=== PATIENT | male | born 1975 | race Two or more races ===

== ENCOUNTER 2021-07-10 13:57 | Emergency (ER) | payer OTHER | END 2021-07-10 14:12 | disposition home or self-care (01) | LOC: JVIRT 13:57 | DX: M79.10 Myalgia, unspecified site (principal); R05.1 Acute cough; R19.7 Diarrhea, unspecified | CPT/HCPCS: C9803; Q3014-GT; U0003; U0005 ==

== ENCOUNTER 2022-01-24 10:25 | Emergency (ER) | payer OTHER ==
[2022-01-24 10:56] VITALS: BP 136/92; PULSE 93; TEMP 98.3; BMI 38.2
[2022-01-24] MEDS ORDERED: KETOROLAC TROMETHAMINE 30 MG/1 ML VIAL IM ONE (12:11)
[2022-01-24] MEDS ORDERED: LIDOCAINE 5% TOPICAL PATCH TP ONE (12:11)
[2022-01-24] MEDS ORDERED: KETOROLAC TROMETHAMINE 30 MG/1 ML VIAL ONE (12:23)
[2022-01-24] MEDS ORDERED: LIDOCAINE 5% TOPICAL PATCH ONE (12:23)
[2022-01-24] MEDS ORDERED: LIDOCAINE PATCH REMOVAL MC SCH (22:00)
== END 2022-01-24 12:49 | disposition home or self-care (01) ==
LOC: JER 10:25 → JERFT 10:25
PROC: 3E0233Z Introduction of Anti-inflammatory into Muscle, Percutaneous Approach (ICD-10-PCS; principal; 2022-01-24)
DX: M54.42 Lumbago with sciatica, left side (principal)
CPT/HCPCS: 99284-25

== ENCOUNTER 2022-03-02 08:19 | Emergency (ER) | payer OTHER ==
[2022-03-02 08:32] VITALS: BP 154/89; PULSE 90; RESP 18; TEMP 97.8; BMI 29.0
== END 2022-03-02 09:27 | disposition home or self-care (01) ==
LOC: JER 08:19 → JERFT 08:19
DX: J06.9 Acute upper respiratory infection, unspecified (principal)
CPT/HCPCS: 0241U-QW; 93005; 93010; 99284-25

== ENCOUNTER 2022-07-15 08:15 | Emergency (ER) | payer OTHER ==
[2022-07-15] MEDS ORDERED: predniSONE 20 MG TABLET (UD) PO ONE (08:24)
[2022-07-15] MEDS ORDERED: FAMOTIDINE 20 MG TABLET PO ONE (08:25)
[2022-07-15 08:29] VITALS: BP 165/95; PULSE 74; RESP 18; TEMP 98; BMI 39.5
[2022-07-15] MEDS ORDERED: predniSONE 20 MG TABLET (UD) ONE (08:42)
[2022-07-15] MEDS ORDERED: FAMOTIDINE 20 MG TABLET ONE (08:42)
== END 2022-07-15 08:50 | disposition home or self-care (01) ==
LOC: JER 08:15 → JERFT 08:15
DX: T78.40XA Allergy, unspecified, initial encounter (principal)
CPT/HCPCS: 99283-25

== ENCOUNTER 2023-04-19 10:11 | Inpatient (IN) | payer OTHER ==
[2023-04-19] MEDS ORDERED: MECLIZINE HCL 25 MG TABLET (FP) PO ONE (10:58)
[2023-04-19] MEDS ORDERED: LACTATED RINGERS SOLUTION 1000 ML INFUS.BAG IV ONE (11:01)
[2023-04-19] MEDS ORDERED: MECLIZINE HCL 25 MG TABLET (FP) ONE (11:06)
[2023-04-19 12:38] LABS: BASO % 0.8 % (0-2.0); HEMATOCRIT 41.5 % (35.4-49); HEMOGLOBIN 13.8 GM/dL (11.7-16.9); LYMPH % 29.3 % (8-40); MCH 26.3 pg (25.7-33.7); MCHC 33.3 g/dl (32.0-35.9); MEAN CELL VOLUME 79.2 fl (80-96); MEAN PLT VOLUME 8.1 fl (7.5-11.1); NEUT % 50.9 % (42.8-82.8); PLATELET COUNT 222 10^3/uL (134-434); RBC 5.24 M/mm3 (4.00-5.60); RDW 13.7 % (11.9-15.9); WHITE BLOOD COUNT 7.9 K/mm3 (4.0-10.0)
[2023-04-19 12:39] LABS: INR 1.02 (0.83-1.09); PROTHROMBIN TIME (PATIENT) 11.8 SEC (9.7-13.0)
[2023-04-19 12:41] LABS: ACTIVATED PTT 35.3 SECONDS (25.2-36.5)
[2023-04-19 12:56] LABS: POTASSIUM 4.5 mmol/L (3.5-5.1)
[2023-04-19 13:00] LABS: MAGNESIUM 2.1 mg/dL (1.8-2.4)
[2023-04-19 13:02] LABS: ALBUMIN 3.9 g/dl (3.4-5.0); BLOOD UREA NITROGEN 10.8 mg/dL (7-18); CREATININE 0.9 mg/dL (0.55-1.3)
[2023-04-19 13:05] LABS: TOT PROT 7.2 g/dl (6.4-8.2)
[2023-04-19 13:06] LABS: BILIRUBIN,TOTAL 0.2 mg/dL (0.2-1)
[2023-04-19 14:47] LABS: PH,URINE 5.5 (5.0-8.0); URINE APPEARANCE CLEAR; URINE BILIRUBIN NEGATIVE (NEGATIVE); URINE COLOR YELLOW; URINE GLUCOSE (UA) NEGATIVE (NEGATIVE); URINE KETONE TRACE (NEGATIVE); URINE LEUK ESTERASE NEGATIVE (NEGATIVE); URINE NITRITE NEGATIVE (NEGATIVE); URINE PROTEIN NEGATIVE (NEGATIVE); URINE UROBILINOGEN 0.2 mg/dL (0.2-1.0)
[2023-04-19] MEDS ORDERED: ACETAMINOPHEN 325 MG TABLET (FP) PO PRN (16:46)
[2023-04-19] MEDS ORDERED: ONDANSETRON *ODT* 4 MG TABLET SL PRN (16:46)
[2023-04-19 18:18] VITALS: BMI 37.9
[2023-04-19] MEDS ORDERED: PNEUMOC 20-VAL CONJ-DIP CRM/PF 0.5 ML SYRINGE IM ONE (19:00)
[2023-04-20 01:33] VITALS: RESP 16
[2023-04-20 06:08] VITALS: BP 133/71; PULSE 62; TEMP 97.5
[2023-04-20 09:27] LABS: HEMATOCRIT 45.7 % (35.4-49); HEMOGLOBIN 15.5 GM/dL (11.7-16.9); MCH 26.4 pg (25.7-33.7); MCHC 33.9 g/dl (32.0-35.9); MEAN CELL VOLUME 77.8 fl (80-96); MEAN PLT VOLUME 7.8 fl (7.5-11.1); PLATELET COUNT 240 10^3/uL (134-434); RBC 5.88 M/mm3 (4.00-5.60); RDW 14.3 % (11.9-15.9); WHITE BLOOD COUNT 7.8 K/mm3 (4.0-10.0)
[2023-04-20] MEDS ORDERED: REGADENOSON 0.4 MG/5 ML PRE-FILLED SYRINGE IVPUSH ONE ×2 (10:08→11:00)
[2023-04-20 10:51] LABS: CALCIUM 9.2 mg/dL (8.5-10.1)
[2023-04-20 10:54] LABS: CREATININE 0.8 mg/dL (0.55-1.3); TOT PROT 7.7 g/dl (6.4-8.2)
[2023-04-20 10:55] LABS: BILIRUBIN,TOTAL 0.3 mg/dL (0.2-1)
[2023-04-20 11:36] LABS: POTASSIUM 4.1 mmol/L (3.5-5.1)
== END 2023-04-20 18:38 | disposition home or self-care (01) | DRG 149 ==
LOC: JER 10:11 → JERBED 13:48 → OBSVTOIN 16:44 → JERBED 16:44 → J4S 17:38
PROVIDERS: ADMIT Family Medicine; ATTEND Family Medicine
DX: R42 Dizziness and giddiness (principal); I10 Essential (primary) hypertension; H53.2 Diplopia; R07.9 Chest pain, unspecified; Z86.718 Personal history of other venous thrombosis and embolism; Z86.711 Personal history of pulmonary embolism
CPT/HCPCS: 0241U-QW; 36415; 70450-TC; 70551-TC; 71045-TC-FY; 78452-TC; 80053; 80061; 81003; 82550; 82962; 83036; 83735; 84439; 84484; 85025; 85027; 85379; 85610; 85730; 86850; 86900; 86901; 93005; 93010; 93017; 93880-TC; 99285-25; A9502; C1887; G0378; J2785

== ENCOUNTER 2023-10-17 09:49 | Emergency (ER) | payer OTHER ==
[2023-10-17 09:58] VITALS: BP 130/70; PULSE 83; RESP 18; TEMP 97.8; BMI 36.9
[2023-10-17 10:47] LABS: BASO % 1.5 % (0-2.0); EOS % 17.4 % (0-4.5); HEMATOCRIT 41.4 % (35.4-49); HEMOGLOBIN 13.3 GM/dL (11.7-16.9); LYMPH % 27.2 % (8-40); MCH 23.7 pg (25.7-33.7); MEAN CELL VOLUME 74.1 fl (80-96); MEAN PLT VOLUME 7.7 fl (7.5-11.1); MONO % 4.9 % (3.8-10.2); PLATELET COUNT 226 10^3/uL (134-434); RBC 5.59 M/mm3 (4.00-5.60); RDW 16.3 % (11.9-15.9); WHITE BLOOD COUNT 9.3 K/mm3 (4.0-10.0)
[2023-10-17 10:54] LABS: INR 1.05 (0.83-1.09); PROTHROMBIN TIME (PATIENT) 12.2 SEC (9.7-13.0)
[2023-10-17 11:09] LABS: CHLORIDE 108 mmol/L (98-107); SODIUM 136 mmol/L (136-145)
[2023-10-17 11:11] LABS: BLOOD UREA NITROGEN 12.4 mg/dL (7-18)
[2023-10-17 11:12] LABS: ALBUMIN 3.8 g/dl (3.4-5.0); CO2 25 mmol/L (21-32); GLUCOSE,RANDOM 104 mg/dL (74-106)
[2023-10-17 11:15] LABS: SGOT/AST 61 U/L (15-37); SGPT/ALT 27 U/L (13-61)
[2023-10-17 11:16] LABS: BILIRUBIN,TOTAL 0.6 mg/dL (0.2-1); TOT PROT 7.5 g/dl (6.4-8.2)
[2023-10-17 11:17] LABS: ALK PHOS 44 U/L (45-117)
[2023-10-17 11:21] LABS: ANION GAP 3 mmol/L (4-13); POTASSIUM 7.9 mmol/L (3.5-5.1)
[2023-10-17 12:09] LABS: POTASSIUM 4.2 mmol/L (3.5-5.1)
[2023-10-17 12:11] LABS: BLOOD UREA NITROGEN 11.3 mg/dL (7-18)
[2023-10-17 12:14] LABS: CREATININE 0.9 mg/dL (0.55-1.3)
[2023-10-17] MEDS ORDERED: ALBUTEROL SO4 0.083% IH SOL 2.5 MG/3 ML VIAL.NEB. NEB ONE (14:32)
[2023-10-17] MEDS: ALBUTEROL SO4 0.083% IH SOL 2.5 MG/3 ML VIAL.NEB. NEB ONE (14:32)
== END 2023-10-17 15:38 | disposition home or self-care (01) ==
LOC: JER 09:49
PROC: 3E0F7GC Introduction of Other Therapeutic Substance into Respiratory Tract, Via Natural or Artificial Opening (ICD-10-PCS; principal; 2023-10-17)
DX: R10.31 Right lower quadrant pain (principal); R06.02 Shortness of breath; R91.8 Other nonspecific abnormal finding of lung field
CPT/HCPCS: 36415; 71046-TC-FY; 71275-TC; 80048; 80053; 83880; 84484; 85025; 85610; 93005; 93010; 99285-25; Q9967

== ENCOUNTER 2024-10-31 11:56 | Emergency (ER) | payer OTHER ==
[2024-10-31] MEDS ORDERED: ONDANSETRON 4 MG/2 ML VIAL ONE (12:36)
[2024-10-31] MEDS: SODIUM CHLORIDE 1,000 ML IV STA (12:47)
[2024-10-31] MEDS: ONDANSETRON 4 MG/2 ML VIAL IVPUSH ONE (12:48)
[2024-10-31 13:00] LABS: ABSOLUTE IMMATURE GRANULOCYTES 0.02 x10^3/uL (0.0-0.031); BASOPHILS # 0.07 x10^3/uL (0.01-0.08); EOSINOPHIL % 19.3 % (0.8-7.0); EOSINOPHILS # 1.72 x10^3/uL (0.04-0.54); HEMATOCRIT 41.5 % (40.1-51.0); HEMOGLOBIN 12.7 g/dL (13.7-17.5); MCHC 30.6 g/dl (32.3-36.5); MONOCYTE # 0.62 x10^3/uL (0.30-0.82); PLATELET COUNT 237 x10^3/uL (163-337); RDW 14.4 % (12.1-15.9)
[2024-10-31 13:19] VITALS: BP 155/75; PULSE 74; RESP 20; TEMP 98.7; BMI 38.2
[2024-10-31 13:27] LABS: POTASSIUM 4.1 mmol/L (3.5-5.1)
[2024-10-31 13:33] LABS: CALCIUM 9.7 mg/dL (8.5-10.1)
[2024-10-31 13:34] LABS: ALBUMIN 4.2 g/dl (3.4-5.0); BLOOD UREA NITROGEN 10.7 mg/dL (7-18)
[2024-10-31 13:37] LABS: CREATININE 0.9 mg/dL (0.55-1.3)
[2024-10-31 13:39] LABS: BILIRUBIN,TOTAL 0.3 mg/dL (0.2-1); TOT PROT 7.4 g/dl (6.4-8.2)
[2024-10-31 14:19] LABS: HCV DIAGNOSTIC IN-HOUSE W/RFLX NON-REACTIVE (NONREACTIVE)
[2024-10-31 14:20] LABS: HIV INTERPRETATION NEGATIVE (NEGATIVE)
== END 2024-10-31 13:52 | disposition home or self-care (01) ==
LOC: JERFT 11:56
PROC: 3E033GC Introduction of Other Therapeutic Substance into Peripheral Vein, Percutaneous Approach (ICD-10-PCS; principal; 2024-10-31)
PROC: 3E0337Z Introduction of Electrolytic and Water Balance Substance into Peripheral Vein, Percutaneous Approach (ICD-10-PCS; 2024-10-31)
DX: U07.1 COVID-19 (principal); R11.2 Nausea with vomiting, unspecified; R05.9 Cough, unspecified; R10.84 Generalized abdominal pain; R19.7 Diarrhea, unspecified
CPT/HCPCS: 0241U-QW; 36415; 80053; 85025; 86803; 87389; 99284-25